=== PATIENT | female | born 1935 | race Caucasian/White ===

== ENCOUNTER 2019-12-15 22:52 | Emergency (ER) | payer MEDICARE, OTHER, SELFPAY ==
[2019-12-15 22:56] VITALS: BP 127/47; PULSE 98; RESP 15; TEMP 36.4; O2SAT 98
--- NOTE | 2019-12-15 22:58 | ED.EAR ---
HPI - Ear Problem General Chief complaint: Ear Stated complaint: Hit ear on heating pad Time Seen by Provider: 12/15/19 22:58 Source: patient Mode of arrival: ambulatory Limitations: no limitations History of Present Illness HPI Narrative: Patient is an 84-year-old female who presents for evaluation of laceration to the left ear. Patient reports that she was using a heating pad, when she went to move the heating pad, states that has quite sharp edges, and it cut into her left ear. Patient reports she is able to control the bleeding at home, but due to the size of the laceration wanted to be seen at our emergency department. Patient denies fall, head trauma or loss of consciousness. She is up-to-date on her tetanus. No numbness. Pain is mild. No neck pain, no vision changes. Related Data Allergies Allergy/AdvReac Type Severity Reaction Status Date / Time Influenza Virus Vaccines Allergy Unknown LYMPH NODE Verified 07/18/15 11:10 SWELLING Review of Systems Review of Systems: Narrative: CONSTITUTIONAL: Denies fever CARDIOVASCULAR: Denies chest pain RESPIRATORY: Denies cough or dyspnea. GASTROINTESTINAL: Denies abdominal pain SKIN: Denies rash MUSCULOSKELETAL: Denies back pain NEUROLOGIC: Denies headache PMF Past Medical History Medical History (Updated 12/15/19 @ 23:27 by Serene Sherwood MD) Breast cancer Hypertension Surgical History Surgical History (Updated 12/15/19 @ 23:25 by Serene Sherwood MD) H/O mastectomy Hx of bilateral hip replacements Social History Social History (Updated 12/15/19 @ 23:25 by Serene Sherwood MD) Smoking status: Never smoker Alcohol intake: never Substance use: never Gender identity (if verbalized by the patient): Female Exam Narrative: Exam Narrative: GENERAL: Awake, alert, conversant HEAD: Normocephalic, atraumatic. EYES: PERRLA and EOMI. ENT: Nares clear, no rhinorrhea or epistaxis. Mucous membranes moist. NECK: Supple. CHEST: No respiratory distress, breathing even and non labored HEART: Regular rate, sinus rhythm ABDOMEN:Non distended, non tender EXTREMITIES: Normal range of motion. No edema. SKIN: 2 cm through and through laceration of the pinna of the left ear, violation of the cartilage, minimal active bleeding, no foreign body NEURO:No focal deficits. Alert and oriented x3 Course Vital Signs Vital signs: Vital Signs Temperature 36.4 C L 12/15/19 22:56 Pulse Rate 98 12/15/19 22:56 Respiratory Rate 15 12/15/19 22:56 Blood Pressure 127/47 L 12/15/19 22:56 Pulse Oximetry 98 12/15/19 22:56 Temperature 36.4 C L 12/15/19 22:56 Pulse Rate 98 12/15/19 22:56 Respiratory Rate 15 12/15/19 22:56 Blood Pressure 127/47 L 12/15/19 22:56 Pulse Oximetry 98 12/15/19 22:56 Transfer Transportation: Other (POV) Medical Decision Making MDM Narrative Medical decision making narrative: Patient presented for evaluation of left ear laceration. It does violate the cartilage. Patient's tetanus is up-to-date. She was given a dose of IV antibiotics. There is no foreign body or active bleeding identified on exam. I called over to multiple hospitals in the area including [facility] who do not have ENT or plastics on-call. We do not have ENT or plastics on-call at this facility. I called over to [facility] they do not have plastics clinic available to see the patient tomorrow, but did advise she could go to the emergency department. I called over to [facility] who stated that there was a 5 to 8-hour wait in the emergency department, so then I spoke with Dr. Ayala with facial plastics who will try to work the patient into clinic with facial plastics tomorrow so that the patient can avoid the emergency department. For now, we will prescribe outpatient Keflex, and patient was given follow-up information for the facial plastics clinic. If they are unable to secure an appointment with
[2019-12-16 00:59] VITALS: BP 125/79; PULSE 79; RESP 19; TEMP 37; O2SAT 100
== END 2019-12-16 01:00 | disposition home or self-care (01) ==
PROVIDERS: Emergency Provider Emergency Medicine; PCP Family Medicine Adolescent Medicine
DX: S01.312A Laceration without foreign body of left ear, initial encounter (principal); Z85.3 Personal history of malignant neoplasm of breast; I10 Essential (primary) hypertension; W26.9XXA Contact with unspecified sharp object(s), initial encounter
CPT/HCPCS: 96365; 99284; J0690

== ENCOUNTER → 2021-08-23 11:54 | Outpatient (CLI) | payer MEDICARE, OTHER, SELFPAY ==
--- NOTE | ~2021-08-23 | DEXA_ITS ---
Bone Density Report Name: MONICA RODRIGUEZ Age: 85 Sex: Female Ethnicity: White Date of : 1935 Indication: monitoring treatment; parental hip fracture; height loss; hysterectomy; postmenopausal Referring Provider: YA DIAZ Study: Bone densitometry was performed. Exam Date: August 23, 2021 Accession number: [id number] Bone Density: Region BMD T-score Z-score Classification AP Spine (L1-L4) 1.250 1.8 4.7 Normal World Health Organization criteria for BMD impression classify patients as: Normal (T-score at or above -1.0), Osteopenia (T-score between -1.0 and -2.5), or Osteoporosis (T-score at or below -2.5). Previous Exams: Region Exam Age BMD T-score BMD Change BMD Change Date g/cm2 vs Baseline vs Previous AP Spine(L1-L4) 08/23/2021 85 1.250 1.8 0.112* 0.112* 11/13/2017 81 1.139 0.8 *Denotes significance at 95% confidence level, LSC for AP Spine = 0.022 g/cm2 Clinical Information Provided by Patient: Parent has had a hip fracture Is being treated for osteoporosis Has used the following medications: Boniva (i.e. ibandronate), Vitamin D, Calcium Has the following medical conditions: Hysterectomy Patient maximum height was 62 Menopause Age: 48 Drinks caffeinated beverages Onset of menses at age 10 Number of children 0 Impression: The patient has normal bone mass. The patient has risk factors, including: parental hip fracture. No significant bone loss was observed. Discussion: PATIENT UNDER TREATMENT WITH NO SIGNIFICANT BMD LOSS SINCE LAST EXAM. In an untreated patient, BMD typically declines with age. A lack of decline or gain is usually a sign that treatment is efficacious and fracture risk is reduced. It is important to ask patients whether they are taking their medications and to encourage continued and appropriate compliance with their osteoporosis therapies to reduce fracture risk. It is also important to review their risk factors and encourage appropriate calcium and vitamin D intakes, exercise, fall prevention and other lifestyle measures. Follow-Up: Consider a repeat BMD and Vertebral Fracture Assessment (VFA) exam in 2 years or sooner if medically necessary, to reassess this patient's status. Reported by: HUY on 08/23/2021 12:23:00 PM. Reviewed, dictated and finalized at location [facility] FOLEY
--- NOTE | ~2021-08-23 | XR_ITS ---
EXAMINATION: XR hip BI wo pelvis EXAM DATE: 08/23/2021 12:45 INDICATION: History of bilateral total hip replacements. TECHNIQUE: Each hip imaged independently (separate right and also left hip) 'frog leg' and frontal p rojections for interpretation. Comparison is made to prior examination from 07/18/2015 left hip. FINDINGS: There are bilateral hip replacements, hardware in expected position. No periprosthetic luce ncy or hardware subsidence. There are no acute fractures identified. IMPRESSION: Intact hip replacements. Reviewed, dictated and finalized at location G. [employer] OPERATOR IMPRESSION: Intact hip replacements.
== END ==
PROVIDERS: PCP Family Medicine Adolescent Medicine; Visit Provider Family Medicine Adolescent Medicine
DX: Z78.0 Asymptomatic menopausal state (principal); Z96.643 Presence of artificial hip joint, bilateral
CPT/HCPCS: 73521; 77080

== ENCOUNTER 2021-10-24 10:37 | Outpatient (CLI) | payer MEDICARE, OTHER, SELFPAY | END 2021-10-24 10:38 | disposition home or self-care (01) | LOC: ANHAUDIO 10:40 | PROVIDERS: PCP Family Medicine Adolescent Medicine; Visit Provider Family Medicine Adolescent Medicine | DX: H91.13 Presbycusis, bilateral (principal) | CPT/HCPCS: 92557; 92567 ==

== ENCOUNTER 2022-03-17 10:20 | Emergency (ER) | payer MEDICARE, SELFPAY ==
--- NOTE | 2022-03-17 10:25 | ED.LOWEXIN ---
HPI - Extremity Injury (Lower) General Chief Complaint: Extremity Injury, Lower Stated Complaint: Right Ankle/Leg Pain Time Seen by Provider: 03/17/22 10:25 Source: patient Mode of arrival: ambulatory Limitations: no limitations History of Present Illness HPI Narrative: Ms. Oconnell is a 86-year-old female patient presenting to clinic today with complaints of right ankle and leg pain since last night. She reports no known injury to her right lower leg/ankle. Does have a trace of edema to the lower extremity. Denies any history of blood clotting disorder, PVD, PAD, hyperlipidemia, diabetes, or congestive heart failure. She denies any shortness of breath or chest pain. Is taking lisinopril for history of hypertension. She denies history of being a smoker Related Data Home Medications Medication Instructions Recorded Confirmed spironolactone 25 mg tablet 25 mg PO DAILY 02/21/22 02/21/22 Allergies Allergy/AdvReac Type Severity Reaction Status Date / Time Influenza Virus Vaccines Allergy Unknown LYMPH NODE Verified 03/17/22 10:24 SWELLING indomethacin AdvReac Intermediate Abdominal Verified 03/17/22 10:24 Pain diclofenac AdvReac Mild Abdominal Verified 03/17/22 10:24 Pain Review of Systems Review of Systems: Pertinent positives per HPI. Patient denies any fever, chills, rash, headache, visual changes, dizziness, cough, runny nose, sore throat, shortness of breath, chest pain, palpitations, nausea, vomiting, diarrhea, constipation, abdominal pain, or any urinary issues. [facility] Past Medical History Medical History Breast cancer Hypertension Surgical History Surgical History H/O bilateral mastectomy (2009) H/O mastectomy Hx of bilateral hip replacements Left 2016 Right 2012 Hx of hysterectomy (2013) Social History Social History Smoking status: Never smoker Alcohol intake: never Substance use: never Gender identity (if verbalized by the patient): Female Comments At the time of my signature, I reviewed and agree with the nursing past medical, surgical, social, and family history. There is no relevant family history pertinent to the patient complaint. Exam Narrative: General: Well-developed, well nourished, in no apparent distress Head: Normocephalic, atraumatic. Cardio: Regular rate and rhythm, s1 and s2 normal, no murmur appreciated. Resp: Clear to auscultation bilaterally, no rhonchi, rales, wheezing or rubs. Musculoskeletal: No deformity, tender to palpation over the medial lower leg and to the top of the ankle and foot. Into the top of the ankle and foot is more of a paresthesia but has a small knotted area to the right medial lower leg is tender to palpation with a positive Homans' sign, grossly normal range of motion, muscle strength strong and equal, pedal pulse present, trace of edema in right lower extremity, foot appears dusky but has good capillary refill, normal gait and station Course Course Emergency Course: Portions of this record may have been created with voice recognition software. Level of Care: Express Care Visit Vital Signs Vital signs: Vital signs reviewed Transfer Transfered to: [facility] Transportation: Other (Private car) Transfer rationale: Right leg pain with mild swelling rule out DVT Accepting physician: Allison Butler Transfer comments: Transfer via private car MDM - Extremity Injury (Lower) MDM Narrative Medical decision making narrative: At the time of visit patient is resting comfortably on the exam table. Recommend transfer to ED for DVT evaluation although this may be a superficial thrombosis to the right lower medial. Risk and benefits explained to the patient and she agrees to transfer. Contacted Allison who is the provider in the emergency room
[2022-03-17 10:32] VITALS: BP 117/64; PULSE 80; RESP 18; TEMP 36; O2SAT 100
[2022-03-17 10:36] VITALS: BP 117/64; PULSE 80; RESP 18; TEMP 36; O2SAT 100
== END 2022-03-17 10:55 | disposition short-term general hospital (02) ==
PROVIDERS: Emergency Provider Nurse Practitioner Family; PCP Family Medicine Adolescent Medicine
DX: M79.661 Pain in right lower leg (principal); R60.0 Localized edema; I10 Essential (primary) hypertension; Z85.3 Personal history of malignant neoplasm of breast; Z90.13 Acquired absence of bilateral breasts and nipples; Z96.643 Presence of artificial hip joint, bilateral
CPT/HCPCS: 99212; G0463

== ENCOUNTER 2022-03-17 11:04 | Emergency (ER) | payer MEDICARE, SELFPAY ==
--- NOTE | ~2022-03-17 | US_ITS ---
EXAMINATION: US venous doppler LE RT DATE: 03/17/2022 12:36 INDICATION: Right lower limb pain and swelling. TECHNIQUE: Grayscale ultrasound images without and with compression and Doppler ultrasound images of the right lower extremity veins were obtained. COMPARISON: Ultrasound 07/26/2015 FINDINGS: The visualized portions of right common femoral vein, profunda (deep) femoral vein, femoral vein, pop liteal vein, peroneal veins, posterior tibial veins, and greater saphenous vein outflow are patent. IMPRESSION: 1. No deep venous thrombosis. Reviewed, dictated and finalized at location A.
[2022-03-17 11:08] VITALS: BP 147/90; PULSE 98; RESP 20; TEMP 36.3; O2SAT 100
[2022-03-17 12:14] LABS: Basophils Percent Auto 0.3 % (0.2-1.2); Eosinophils Absolute Auto 0.1 K/mm3 (0-0.3); Eosinophils Percent Auto 0.9 % (0-4.4); Hematocrit 37.7 % (37.0-47.0); Hemoglobin 12.2 g/dL (12.0-15.0); Immature Granulocyte Absolute 0.03 K/mm3 (0.00-0.031); Immature Granulocyte Percent A 0.3 % (0-0.5); Lymphocytes Absolute Auto 1.44 K/mm3 (0.9-3.2); Lymphocytes Percent Auto 16.5 % (18.3-44.2); Mean Corpuscular HGB Conc 32.4 g/dl (32-36); Mean Corpuscular Hemoglobin 34.7 pg (26-34); Mean Corpuscular Volume 107.1 fl (80-100); Mean Platelet Volume 9.4 fl (7.4-10.4); Monocytes Percent Auto 10.9 % (2.6-8.5); Neutrophils Absolute Auto 6.2 K/mm3 (1.3-6.7); Neutrophils Percent Auto 71.1 % (45.5-73.1); Platelet Count Result 281 k/mm3 (150-375); Red Blood Count 3.52 M/mm3 (4.2-5.4); Red Cell Distribution Width 12.6 % (11.5-14.5); White Blood Count 8.7 K/mm3 (4.5-10.0)
[2022-03-17 12:24] LABS: Alanine Aminotransferase 23 U/L (6-35); Albumin Level 4.3 g/dL (3.5-5.1); Alkaline Phosphatase 61 U/L (38-126); Anion Gap 11 mmol/L (8-16); Aspartate Amino Transferase 34 U/L (14-36); Bilirubin,Total 0.6 mg/dL (0.2-1.3); Blood Urea Nitrogen 17 mg/dL (7-17); Calcium 10.8 mg/dL (8.4-10.2); Carbon Dioxide 28 mmol/L (22-30); Chloride 96 mmol/L (98-107); Estimated Glomerular Filt Rate 39; Glucose 95 mg/dL (65-110); Potassium 4.6 mmol/L (3.4-5.0); Prothrombin Time 12.8 Seconds (11.1-14.7); Sodium 135 mmol/L (137-145)
[2022-03-17 12:25] LABS: Partial Thromboplastin Time 30.6 SECONDS (22.3-36.8)
--- NOTE | 2022-03-17 12:39 | ED.EXTPRO ---
HPI - Extremity Problem General Chief complaint: Extremity Problem,Nontraumatic Stated complaint: right leg swelling Time Seen by Provider: 03/17/22 11:23 Source: patient and old records reviewed Mode of arrival: ambulatory Limitations: no limitations History of Present Illness HPI Narrative: Patient is an 86-year-old female who presents to the ED from urgent care with report of redness, pain, swelling to right lower leg. Patient reports she first noticed an area of pain to her lower medial calf yesterday. She has since developed some redness and swelling to her right foot, ankle, lower calf. She went to the urgent care and was referred here for further evaluation and to rule out DVT. Patient denies history of blood clots. No blood thinners. No recent long distance travel. No chest pain or shortness of breath. No known injury to her foot/lower leg. No wounds. No fever. Related Data Home Medications Medication Instructions Recorded Confirmed spironolactone 25 mg tablet 25 mg PO DAILY 02/21/22 03/17/22 Allergies Allergy/AdvReac Type Severity Reaction Status Date / Time Influenza Virus Vaccines Allergy Unknown LYMPH NODE Verified 03/17/22 11:20 SWELLING indomethacin AdvReac Intermediate Abdominal Verified 03/17/22 10:24 Pain diclofenac AdvReac Mild Abdominal Verified 03/17/22 10:24 Pain Review of Systems Review of Systems: CONSTITUTIONAL: Denies fever, chills, or sweats. CARDIOVASCULAR: Denies chest pain. RESPIRATORY: Denies dyspnea. GASTROINTESTINAL: Denies abdominal pain, nausea, vomiting. SKIN: Reports redness and swelling to R lower leg. MUSCULOSKELETAL: Reports pain to R lower leg. NEUROLOGIC: Denies tingling, numbness, or weakness. All systems reviewed & are unremarkable except as noted in HPI and below PMFSH Past Medical History Medical History Breast cancer Hypertension Surgical History Surgical History H/O bilateral mastectomy (2009) H/O mastectomy Hx of bilateral hip replacements Left 2016 Right 2012 Hx of hysterectomy (2012) Social History Social History Smoking status: Never smoker Alcohol intake: never Substance use: never Gender identity (if verbalized by the patient): Female Exam Narrative: GENERAL: Well appearing, well-nourished, non-toxic, in no acute distress. HEAD: Normocephalic, atraumatic. NECK: Supple. No adenopathy, no masses. RESPIRATORY: Airway patent, respirations nonlabored. Clear to auscultation bilaterally, no rales, rhonchi, wheezing. CARDIOVASCULAR: Regular rate and rhythm without murmurs, rubs, or gallops. Pedal pulses 2+ and equal bilaterally. MUSCULOSKELETAL: Moves all extremities. Strength/ROM intact without gross deformities. No limited range of motion of right ankle/knee. Mild tenderness to palpation of lower medial right calf overlying small superficial lump. No fluctuance appreciated of lump. No other significant calf tenderness. Mild warmth and erythema from mid right calf down to anterior/medial/dorsal foot. Mild swelling of R lower leg compared to left. SKIN: Warm, dry, normal color. No rashes. NEURO: A&O X3. Speech clear. Cranial nerves II-XII grossly intact. Steady gait. No ataxic movements. PSYCHIATRIC: Appropriate mood and affect. Normal interaction. Course Vital Signs Vital signs: Vital Signs Temperature 97.3 F L 03/17/22 11:08 Pulse Rate 98 03/17/22 11:08 Respiratory Rate 20 03/17/22 11:08 Blood Pressure 147/90 H 03/17/22 11:08 Pulse Oximetry 100 03/17/22 11:08 Oxygen Delivery Room Air 03/17/22 11:08 Temperature 97.3 F L 03/17/22 11:08 Pulse Rate 78 03/17/22 14:07 Respiratory Rate 16 03/17/22 14:07 Blood Pressure 154/82 H 03/17/22 14:07 Pulse Oximetry 100 03/17/22 14:07 Oxygen Delivery Room Air 03/17/22 1
[2022-03-17 14:07] VITALS: BP 154/82; PULSE 78; RESP 16; O2SAT 100
== END 2022-03-17 14:08 | disposition home or self-care (01) ==
PROVIDERS: Physician Assistant; Emergency Provider General Practice; PCP Family Medicine Adolescent Medicine
DX: L03.115 Cellulitis of right lower limb (principal); M79.89 Other specified soft tissue disorders; I10 Essential (primary) hypertension; Z85.3 Personal history of malignant neoplasm of breast
CPT/HCPCS: 36415; 80053; 85025; 85610; 85730; 93971; 99284

== ENCOUNTER → 2022-11-28 11:02 | Outpatient (CLI) | payer MEDICARE, OTHER, SELFPAY ==
--- NOTE | ~2022-11-28 | XR_ITS ---
EXAMINATION: XR lumbar spine 2-3V DATE: 11/28/2022 12:46 INDICATION: Pain of the sacrum. TECHNIQUE: 3 views of lumbar spine were obtained. COMPARISON: None. FINDINGS: There is 10 degrees levoscoliosis of lumbar spine. There is 3 mm retrolisthesis of L1 on L2 , L2 on L3, and L3 on L4. There is severely decreased disc height at T11-T12 and T12-L1, moderately d ecreased disc height from L1-L2 through L4-L5, and severely decreased disc height at L4-L5 and L5-S1. There is multilevel severe facet joint osteoarthritis. There are bilateral hip arthroplasties. There is mild osteoarthritis of the sacroiliac joints. IMPRESSION: 1. Severe lumbar spondylosis. 2. Lumbar levoscoliosis. Reviewed, dictated and finalized at location A.
== END ==
PROVIDERS: PCP Family Medicine Adolescent Medicine; Visit Provider Family Medicine Adolescent Medicine
DX: M53.3 Sacrococcygeal disorders, not elsewhere classified (principal); M47.896 Other spondylosis, lumbar region
CPT/HCPCS: 72100

== ENCOUNTER 2022-11-30 14:01 | Inpatient (IN) | payer MEDICARE, SELFPAY ==
[2022-11-30] VITALS (36 sets, daily range): BP systolic 110–159; BP diastolic 56–87; PULSE 69–133; RESP 15–24; TEMP 36.4–36.7; O2SAT 89–100; BMI 23.1
--- NOTE | ~2022-11-30 | CT_ITS ---
EXAMINATION: CT brain wo con DATE: 11/30/2022 18:34 INDICATION: Confusion TECHNIQUE: Computed tomography (CT) of the head was performed without intravenous contrast. Sagittal and coronal reconstructions were performed. The mA was adjusted according to patient size. Iterative reconstruction technique was employed. The dose-length product was 529.67 mGy-cm. COMPARISON: None FINDINGS: No acute intracranial hemorrhage, acute infarction or abnormal extra axial fluid collection. There is moderate scattered white matter hypoattenuation consistent with chronic small vessel ischemic diseas e. Symmetric prominence of the sulci and subarachnoid spaces overlying the convexities consistent wit h moderate age-appropriate diffuse cerebral volume loss. Ventricles are normal and symmetric. No mass /mass effect. Changes of bilateral intraocular lens replacement. The orbits, paranasal sinuses and ma stoid air cells are normal. IMPRESSION: 1. No acute intracranial process. 2. Age-related changes including moderate diffuse volume loss and moderate scattered white matter hyp oattenuation consistent with chronic small vessel ischemic disease. Reviewed, dictated and finalized at location A. IMPRESSION: 1. No acute intracranial process. 2. Age-related changes including moderate diffuse volume loss and moderate scat tered white matter hypoattenuation consistent with chronic small vessel ischemi c disease.
--- NOTE | ~2022-11-30 | MR_ITS ---
MRI of the brain Clinical History: Confusion Technique: Axial and sagittal T1-weighted images were acquired. These were followed by axial T2-weigh katherine, diffusion weighted, gradient, and FLAIR images. Following intravenous administration of 11 cc Mu ltiHance gadolinium, T1-weighted fat-sat imaging was performed in the axial and coronal planes. Findings: There is no acute infarct, internal hemorrhage, or mass lesion. There are moderate chronic white matter changes throughout the periventricular white matter bilaterally. Ventricles and subarachnoid spaces are unremarkable. Orbits are unremarkable. Paranasal sinuses and m astoid areas are clear. Major intracranial flow voids appear intact. Sagittal midline structures are intact. No abnormal postcontrast enhancement identified. IMPRESSION: No acute abnormality. Moderate chronic microvascular ischemic changes. Reviewed, dictated and finalized at location .
--- NOTE | ~2022-11-30 | XR_ITS ---
EXAMINATION: XR chest 2V DATE: 11/30/2022 15:14 INDICATION: Dizziness. Weakness. TECHNIQUE: Frontal and lateral views of the chest were obtained. COMPARISON: Chest 2 views 07/07/15, chest CT 06/27/2012 FINDINGS: There is no pneumonia, pleural effusion, or pneumothorax. Cardiomegaly is noted. There is a chronic 2 cm left upper paraspinal mass. There are prominent pericardial fat pads. IMPRESSION: 1. Cardiomegaly. 2. 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 Reviewed, dictated and finalized at location A. IMPRESSION: 1. Cardiomegaly. 2. 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
--- NOTE | ~2022-11-30 | US_ITS ---
EXAMINATION: US carotid duplex BI DATE: 11/30/2022 22:40 INDICATION: Slurred speech TECHNIQUE: Grayscale, color Doppler, and pulsed Doppler images of the cervical carotid arteries were obtained. The degree of vessel stenosis is placed in one of the following categories: normal, <50%, 5 0-69%, >=70% but less than near-occlusion, near-occlusion, or total occlusion. Note that percent sten osis relative to normal distal artery lumen diameter is indirectly measured from velocity measurement s as described by Prasad, et al. Radiology 2003; 229:340-346. COMPARISON: None. FINDINGS: RIGHT: The right common carotid artery (CCA) peak systolic velocity (PSV) is 56 cm/s. The right internal car otid artery (ICA) PSV is 81 cm/s. The right ICA end-diastolic velocity (EDV) is 9 cm/s. The right ICA /CCA PSV ratio is 1.4. Grayscale and color Doppler images yield an estimate of <50% diameter reductio n from plaque in the ICA. The external carotid artery (ECA) PSV is 95 cm/s. There is antegrade flow i n the right vertebral artery. LEFT: The left CCA PSV is 69 cm/s. The left ICA PSV is 63 cm/s. The left ICA EDV is 13 cm/s. The left ICA/C CA PSV ratio is 0.9. Grayscale and color Doppler images yield an estimate of <50% diameter reduction from plaque in the ICA. The ECA PSV is 91 cm/s. There is antegrade flow in the left vertebral artery. IMPRESSION: 1. <50% stenosis in the right internal carotid artery. 2. <50% stenosis in the left internal carotid artery. Reviewed, dictated and finalized at location A.
--- NOTE | ~2022-11-30 | US_ITS ---
EXAMINATION: US venous doppler [facility] DATE: 11/30/2022 22:40 INDICATION: Bilateral lower limb swelling. TECHNIQUE: Grayscale ultrasound images without and with compression and Doppler ultrasound images of the bilateral lower extremity veins were obtained. COMPARISON: None. FINDINGS: The visualized portions of right common femoral vein, profunda (deep) femoral vein, femoral vein, pop liteal vein, posterior tibial veins, peroneal veins, gastrocnemius vein and greater saphenous vein ou tflow are patent. The visualized portions of left common femoral vein, profunda femoral vein, femoral vein, popliteal v ein, posterior tibial veins, peroneal veins, gastrocnemius vein and greater saphenous vein outflow ar e patent. IMPRESSION: 1. No deep venous thrombosis in either lower limb. Reviewed, dictated and finalized at location A.
--- NOTE | 2022-11-30 14:05 | ECG_ITS ---
Measurements Intervals [place] Rate: 62 P: 89 IA: 138 QRS: -67 QRSD: 122 T: 36 QT: 396 QTc: 402 Interpretive Statements SINUS RHYTHM WITH MARKED SINUS ARRHYTHMIA MARKED LEFT AXIS DEVIATION [QRS AXIS < -30] LEFT BUNDLE BRANCH BLOCK [120+ ms QRS DURATION, 80+ ms Q/S IN V1/V2, 85+ ms R IN I/aVL/V5/V6] NO PREVIOUS ECG AVAILABLE FOR COMPARISON Electronically Signed On 11-30-2022 15:29:51 CDT by Clay Hyatt M.D.
[2022-11-30 14:26] LABS: Basophils Percent Auto 0.2 % (0.2-1.2); Hematocrit 38.1 % (37.0-47.0); Hemoglobin 12.3 g/dL (12.0-15.0); Immature Granulocyte Absolute 0.09 K/mm3 (0.00-0.031); Immature Granulocyte Percent A 0.8 % (0-0.5); Lymphocytes Absolute Auto 0.84 K/mm3 (0.9-3.2); Lymphocytes Percent Auto 7.8 % (18.3-44.2); Mean Corpuscular HGB Conc 32.3 g/dl (32-36); Mean Corpuscular Hemoglobin 34.7 pg (26-34); Mean Corpuscular Volume 107.6 fl (80-100); Mean Platelet Volume 10.1 fl (7.4-10.4); Monocytes Absolute Auto 0.4 K/mm3 (0.1-0.6); Monocytes Percent Auto 4.1 % (2.6-8.5); Neutrophils Absolute Auto 9.4 K/mm3 (1.3-6.7); Neutrophils Percent Auto 87.1 % (45.5-73.1); Platelet Count Result 290 k/mm3 (150-375); Red Blood Count 3.54 M/mm3 (4.2-5.4); White Blood Count 10.7 K/mm3 (4.5-10.0)
[2022-11-30 14:37] LABS: Alanine Aminotransferase 33 U/L (6-35); Albumin Level 4.3 g/dL (3.5-5.1); Alkaline Phosphatase 53 U/L (38-126); Anion Gap 5 mmol/L (8-16); Aspartate Amino Transferase 34 U/L (14-36); Bilirubin,Total 0.7 mg/dL (0.2-1.3); Blood Urea Nitrogen 53 mg/dL (7-17); Calcium 11.9 mg/dL (8.4-10.2); Carbon Dioxide 32 mmol/L (22-30); Chloride 99 mmol/L (98-107); Estimated CRCL calculation 14 ml/min; Estimated Glomerular Filt Rate 25; Glucose 144 mg/dL (65-110); Sodium 136 mmol/L (137-145)
[2022-11-30 15:32] LABS: Appearance Urine Clear (Clear); Bilirubin Urine Negative (Negative); Blood Urine Negative (Negative); Color Urine Yellow (Yellow); Glucose Urine UA Negative (Negative); Ketones Urine 1+ mg/dL (Negative); Leukocyte Esterase Ur Negative LEU/UL (Negative); Nitrate Urine Negative (Negative); Protein Urine Negative (Negative); Specific Grav Ur 1.023 (1.001-1.035); Urobilinogen Urine 0.2 mg/dL (<2.0)
[2022-11-30 15:33] LABS: Add Urine Microscopic? NO
--- NOTE | 2022-11-30 17:59 | ED.DIZZY ---
HPI - Dizziness General Chief Complaint: Dizziness Stated Complaint: dizzy, confusion Time Seen by Provider: 11/30/22 17:59 Source: patient and family Mode of arrival: ambulatory Limitations: no limitations History of Present Illness HPI Narrative: 86 years old white female came from home with her niece because of confusion, slurred speech, blurry vision, abnormal handwriting, losing weight, fluctuation of blood pressure. For the last 7 days. Patient denies any fever, chills, nausea, vomiting, diarrhea, constipation, headache, chest pain or shortness of breath or focal neurodeficit. Currently patient is awake, alert and oriented x4 denying any symptoms. Patient been taking Advil for lower back pain, history of lumbar bulging disc. Related Data Home Medications Medication Instructions Recorded Confirmed spironolactone 25 mg tablet 25 mg PO DAILY 02/21/22 03/17/22 Allergies Allergy/AdvReac Type Severity Reaction Status Date / Time Influenza Virus Vaccines Allergy Unknown LYMPH NODE Verified 11/28/22 09:50 SWELLING indomethacin AdvReac Intermediate Abdominal Verified 11/28/22 09:50 Pain diclofenac AdvReac Mild Abdominal Verified 11/28/22 09:50 Pain Review of Systems Review of Systems: All systems reviewed & are unremarkable except as noted in HPI and below PMFSH Past Medical History Medical History Breast cancer Hypertension Surgical History Surgical History H/O bilateral mastectomy (2009) H/O mastectomy Hx of bilateral hip replacements Left 2016 Right 2012 Hx of hysterectomy (2012) Social History Social History Smoking status: Never smoker Alcohol intake: never Substance use: never Lack of Transportation: No Lack of Food: Never True Current Housing: I Have Housing Concerned About Future Housing: No Difficulty Paying Gas/Electric Bills: No Difficulty Paying for Meds: No Currently Unemployed: No Education: Master's Degree or Higher Difficulty w/ Childcare or Family Care: No Gender identity (if verbalized by the patient): Female Exam Narrative: General appearance: Well-developed, well-nourished Skin: Normal color Head: Normocephalic, nontraumatic Eyes: Clear conjunctiva ENT: Oropharynx normal, ears normal, nose normal Neck: Supple, nontender Chest and respiratory: Airway patent, no respiratory distress, no accessory muscle use Heart: Regular rate/rhythm Abdomen: Soft, nontender, no organomegaly, quiet bowel sounds Vascular: Normal peripheral pulses, normal capillary refill. Musculoskeletal: Normal range of motion, nontender back Neurologic: Alert and oriented ?3, [employer] is normal as tested, no gross motor deficit Course Reevaluation(s) Reevaluation #1: No new changes compared to on arrival to the ED Date: 11/30/22 Time: 18:28 Vital Signs Vital signs: Vital Signs Temperature 36.4 C 11/30/22 14:04 Pulse Rate 76 11/30/22 14:04 Respiratory Rate 18 11/30/22 14:04 Blood Pressure 127/63 11/30/22 14:04 Pulse Oximetry 97 11/30/22 14:04 Oxygen Delivery Room Air 11/30/22 14:04 Temperature 36.4 C 11/30/22 14:04 Pulse Rate 76 11/30/22 14:04 Respiratory Rate 18 11/30/22 14:04 Blood Pressure 127/63 11/30/22 14:04 Pulse Oximetry 97 11/30/22 14:04 Oxygen Delivery Room Air 11/30/22 14:04 MDM - Dizziness MDM Narrative Medical decision making narrative: Patient brought to the hospital by her niece, private car complaining of multiple symptoms including confusion, slurred sp
[2022-11-30] MEDS: SODIUM CHLORIDE 0.9% IV 1,000 ML 999 ML IV CONT (18:11)
[2022-11-30] MEDS: SODIUM CHLORIDE 0.9% IV 1,000 ML 100 ML IV CONT (20:27)
[2022-11-30] MEDS: HYDROcodone/acetaminophen (*CRX) 5-325 MG TABLET 1 TAB PO (20:30)
--- NOTE | 2022-11-30 20:48 | ECG_ITS ---
Measurements Intervals [place] Rate: 71 P: 92 [place]: 136 QRS: -54 QRSD: 126 T: 38 QT: 414 QTc: 452 Interpretive Statements SINUS RHYTHM LEFT AXIS DEVIATION [QRS AXIS < -30] LEFT BUNDLE BRANCH BLOCK [120+ ms QRS DURATION, 80+ ms Q/S IN V1/V2, 85+ ms R IN I/aVL/V5/V6] COMPARED TO ECG 11/30/2022 14:20:32 NO SIGNIFICANT CHANGES Electronically Signed On 12-01-2022 9:39:39 CDT by Clay Hyatt M.D.
--- NOTE | 2022-11-30 21:21 | PM.IMHP ---
H&P: HPI History of Present Illness Date/Time: 11/30/22 21:21 Chief Complaint: Dizzines Narrative: this is a 86-year-old female patient who lives home alone. The patient is very hard of hearing and was confused today. She is also complaining of some back pain. Her niece is at the bedside. The niece felt that the patient was confused because they were driving 2 in area where the patient is usually familiar with this area. The knees felt that the patient's hand writing is changing and she is losing weight. There is some fluctuations of her blood pressures as well for the last 7 days. The patient had no fever chills no nausea vomiting no diarrhea. The patient has been taking Advil for lower back pain. She has a history of lumbar bulging disc. Her sodium levels found to be 136. Creatinine is up to 1.9 from 1.3 last year. Her BUN is 53. The patient denies any nausea vomiting but states that she may not be eating and drinking as as much as she usually Does. The patient is complaining of having some swelling to her lower extremities and venous Dopplers of from the deep vein thrombosis was noted in either leg. Carotid Doppler<50% stenosis in the right internal carotid artery. 2. <50% stenosis in the left internal carotid artery. head CT was read as. No acute intracranial process. 2. Age-related changes including moderate diffuse volume loss and moderate scattered white matter hypoattenuation consistent with chronic small vessel ischemic disease. chest x-ray was read as. Cardiomegaly. 2. 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 the patient was given IV fluids and [place]. The patient is being admitted to inpatient status the date of service of 11/30/2022. Review of Systems Review of Systems: All systems reviewed & are unremarkable except as noted in HPI and below Constitutional: Constitutional: Reports as per HPI and Reports no additional constitutional complaints Eyes: Eyes: Reports as per HPI and Reports no additional eye complaints ENT: Reports system reviewed and no additional complaints, except as documented and Reports Normal hearing present Cardiovascular: Cardiovascular: Reports no additional cardiovascular complaints Respiratory: Respiratory: Reports no additional respiratory complaints and Reports no additional respiratory complaints Gastrointestinal: Gastrointestinal: Reports as per HPI and Reports no additional gastrointestinal complaints Musculoskeletal: Musculoskeletal: Reports no additional musculoskeletal complaints Integumentary/Breasts: Skin/Breast: Reports system reviewed and no additional complaints, except as docu and Reports as per HPI Neurologic: Reports system reviewed and no additional complaints, except as documented, Reports as per HPI and Reports Normal hearing present Psychiatric: Psychiatric: Reports no additional psychiatric complaints and Reports as per HPI Endocrine: Endocrine: Reports no additional endocrine complaints Hematologic/Lymphatic: Hematologic/Lymphatic: Reports no additional hematologic/lymphatic complaints Allergic/Immunologic: Allergic/Immunologic: Reports no additional allergic/immunologic complaints [facility] Past Medical History Medical History (Updated 12/01/22 @ 04:35 by Moon Reynolds NP) Breast cancer Chronic back pain Hypertension Torn rotator cuff Surgical History Surgical History (Updated 12/01/22 @ 04:29 by Moon Reynolds NP) H/O bilateral mastectomy (2009) H/O cataract extraction H/O colonoscopy H/O mastectomy right side History of tonsillectomy Hx of bilateral hip replacements Left 2016 Right 2012 Hx of hysterectomy (2013) Family History Family History Sibling Asthma Diabetes mellitus Hypertension Grandparent Cerebrovascular accident Mother Colon cancer Congestive heart failure Hypertension Social History Social History (Update
--- NOTE | 2022-11-30 22:43 | ADMGEN ---
This patient, Aury Oconnell, was admitted to Medical Room 257-. Patient/family oriented to hospital policies and general routines including ID bracelet, bed and alarms, visiting hours, pain management, procedures, bathroom and other care routines, personal items, smoking policy, room service/diet, and visiting hours. Information on how to activate the Rapid Response Team has been discussed. Patient/Family are encouraged to report perceived risks to care and to ask questions if they do not understand what they are told or what they should do.
[2022-12-01] VITALS (10 sets, daily range): BP systolic 118–171; BP diastolic 54–70; PULSE 51–80; RESP 16–18; TEMP 36.4–37.3; O2SAT 96–99
--- NOTE | 2022-12-01 | ECHO_ITS ---
Patient Info Name: Aury Oconnell Age: 86 years : 1935 Gender: Female Ht: 60 in Wt: 118 lbs BSA: 1.51 m2 HR: 67 bpm BP: 118 / 68 mmHg Heart Rhythm: Sinus Rhythm Technical Quality: Fair Exam Date: 12/01/2022 9:32 AM Exam Location: [facility] Pulmonary Exam Room: 257 Patient Status: Inpatient Admit Date: 11/30/2022 Staff Ordering Physician: Moon Reynolds NP Bridge Painter Helper: Li Blakely RDCS Attending Provider: Geoff Trent MD Exam Type: CA echo dop bubble study w con Study Info Indications - slurred speech Complete two-dimentional, color flow and Doppler transthoracic echocardiogram is performed with agitated saline and with contrast to opacify the left ventricle and to improve the delineation of the left ventricle endocardial borders. Contrast/Agitated Saline Contrast/Ag. Saline: Definity Amount: 2.00 ml Administered By: Li Blakely [facility] Existing IV Access: Yes IV Access Condition: patent with no signs of infiltration Summary 1. Left ventricular chamber dimension is normal. 2. Left ventricular systolic function is normal, estimated at 60-65%. 3. There is mildly increased left ventricular wall thickness. 4. Left ventricular septal wall motion is abnormal with septal motion related to bundle branch block. 5. The left ventricular diastolic function is grade I diastolic dysfunction. 6. Right ventricular systolic function is normal. 7. Left atrial chamber dimension is mildly enlarged. 8. Intact interatrial septum visualized by agitated saline imaging. Negative bubble study. 9. There is mild mitral valve regurgitation. 10. There is mild tricuspid valve regurgitation. 11. There is small-moderate anterior pericardial effusion. No echocardiographic evidence of tamponade. Left Ventricle Left ventricular chamber dimension is normal. Left ventricular systolic function is normal, estimated at 60-65%. There is mildly increased left ventricular wall thickness. Left ventricular septal wall motion is abnormal with septal motion related to bundle branch block. The left ventricular diastolic function is grade I diastolic dysfunction. Right Ventricle Right ventricular chamber dimension is normal. Right ventricular systolic function is normal. Left Atria Left atrial chamber dimension is mildly enlarged. Right Atria Right atrial chamber dimension is normal. Atrial Septum Intact interatrial septum visualized by agitated saline imaging. Negative bubble study. Aortic Valve The aortic valve is probable trileaflet. There is no aortic valve stenosis. There is no aortic valve regurgitation. There is mild aortic valve calcification. Pulmonic Valve The pulmonic valve is not well visualized. Mitral Valve The mitral valve has thickened leaflets. There is mild mitral valve regurgitation. Tricuspid Valve There is mild tricuspid valve regurgitation. Pericardium/Pleural There is small-moderate anterior pericardial effusion. No echocardiographic evidence of tamponade. Inferior Vena Cava Dilated inferior vena cava with >50% collapse upon inspiration consistent with elevated right atrial pressure, 8 mmHg. Aorta The aortic root size at the sinus of Valsalva is normal. Left Ventricular Outflow Tract Name Value Normal LVOT 2D LVOT Diameter
[2022-12-01 05:49] LABS: Basophils Percent Auto 0.2 % (0.2-1.2); Hemoglobin 10.4 g/dL (12.0-15.0); Immature Granulocyte Absolute 0.07 K/mm3 (0.00-0.031); Immature Granulocyte Percent A 0.8 % (0-0.5); Lymphocytes Absolute Auto 1.36 K/mm3 (0.9-3.2); Lymphocytes Percent Auto 15.5 % (18.3-44.2); Mean Corpuscular HGB Conc 31.5 g/dl (32-36); Mean Corpuscular Hemoglobin 34.1 pg (26-34); Mean Corpuscular Volume 108.2 fl (80-100); Mean Platelet Volume 10.3 fl (7.4-10.4); Monocytes Percent Auto 11.2 % (2.6-8.5); Neutrophils Absolute Auto 6.3 K/mm3 (1.3-6.7); Neutrophils Percent Auto 72.3 % (45.5-73.1); Platelet Count Result 221 k/mm3 (150-375); Red Blood Count 3.05 M/mm3 (4.2-5.4); Red Cell Distribution Width 12.2 % (11.5-14.5); White Blood Count 8.8 K/mm3 (4.5-10.0)
[2022-12-01 05:57] LABS: Anion Gap 2 mmol/L (8-16); Blood Urea Nitrogen 52 mg/dL (7-17); Calcium 9.3 mg/dL (8.4-10.2); Carbon Dioxide 28 mmol/L (22-30); Chloride 105 mmol/L (98-107); Estimated CRCL calculation 18 ml/min; Estimated Glomerular Filt Rate 31; Glucose 82 mg/dL (65-110); Potassium 4.1 mmol/L (3.4-5.0); Sodium 135 mmol/L (137-145)
[2022-12-01 06:11] LABS: Magnesium 1.9 mg/dL (1.6-2.3)
[2022-12-01] MEDS: ACETAMINOPHEN 325 MG TABLET 650 MG PO ×2 (07:43→20:05)
[2022-12-01] MEDS: predniSONE 10 MG TABLET 40 MG PO (07:45)
[2022-12-01] MEDS: LIDOCAINE 5% PATCH 1 PATCH TRANSDERM (07:46)
[2022-12-01 09:30] LABS: Iron 118 ug/dL (37-170)
[2022-12-01 09:40] LABS: Percent Iron Saturation 44 % (20-50)
[2022-12-01] MEDS: PERFLUTREN LIPID MICROSPHERES 1.5 ML VIAL DILUTED TO 10 ML TOTAL VOLUME IV PUSH (10:00)
--- NOTE | 2022-12-01 10:42 | PCPTNOTE ---
received PT orders for pt; activity order is for bedrest ; called and left voice message for WILIAN Siu, to change activity order if PT is to eval pt.
[2022-12-01 11:04] LABS: Folic Acid > 20.0 ng/mL (2.76->20)
--- NOTE | 2022-12-01 14:47 | PM.IMPN ---
Progress Note: A&P Assessment and Plan (1) Confusion: Code(s): R41.0 - Disorientation, unspecified Status: Acute Assessment and Plan: Patient presented with her niece who is visiting from [place]. Patient reportedly has been more confused which has been notable over phone. Additionally since her niece came in to town patient had difficulty with driving, she was noted to get lost to her favorite restaurant, drove through a stop sign and then had difficulty parking the car, this is unusual for the patient. Additionally patient was noted to have slurred speech, complaints blurry patient word finding, and unsteady gait. CT head was negative for acute findings Carotid ultrasound shows less than 50% stenosis bilaterally Echocardiogram is without PFO/ASD Brain MRI pending PT/0T consulted for evaluation B12, folate, TSH all within normal limits Patient had worsening renal function which appears to be FLORI on CKD. And may be secondary to dehydration and/or Aleve use Appears improved (2) Acute renal failure: Code(s): N17.9 - Acute kidney failure, unspecified Status: Acute Assessment and Plan: Patient stated that she has been taking a lot of NSAIDs. Continue to gently hydrate recheck labs in the a.m. (3) Chronic back pain: Code(s): M54.9 - Dorsalgia, unspecified; G89.29 - Other chronic pain Status: Acute Assessment and Plan: Patient has been taking a lot of ibuprofen due to acute worsening of chronic back pain. Hold NSAIDs given FLORI on CKD P.r.n. acetaminophen or [place] 5/325 q.4 hours Lidoderm 5% patch daily continue oral prednisone. PT OT evaluation greatly be appreciated. (4) Essential (primary) hypertension: Code(s): I10 - Essential (primary) hypertension Status: Chronic Assessment and Plan: Chronic, stable. Patient reportedly had low blood pressure while taking lisinopril which was stopped Blood pressures reviewed and 128/61 to 122/70. HR 75. Hypertension may have been secondary to pain. Continue to monitor Time Spent With Patient Time with patient: 25 - 35 minutes Subjective Date/time seen: 12/01/22 14:47 Interval history: She feels more herself today. Family is at bedside and reports the patient is more alert and speech is improved. No BARRON, vision changes, slurred speech, word finding, paresthesia, or unilateral extremity weakness. Review of Systems Review of Systems: All systems reviewed & are unremarkable except as noted in HPI and below Exam Narrative: General: No acute distress. Older adult female sitting up in bed. Mental Status/Psych: Awake, alert and oriented x4 with clear and appropriate speech. Pleasant and cooperative. Skin: Skin fair, warm, dry and intact without rashes or lesions. No open wounds. Good turgor. HEENT: Normocephalic. Sclera is non-icteric. Pupils equal and round. EOM intact without nystagmus. Oral mucosa pink and moist. Neck: No JVD. no carotid bruit. Heart: S1 and S2 regular rate and rhythm. No murmurs, gallops, or rubs auscultated. Chest: Respirations even and unlabored. Lung sounds are clear to auscultation without wheezes, rhonchi, or rales. Abdomen: Soft, obese and non-tender to palpation. Bowel sounds present in all 4 quadrants. No guarding. Extremities: No edema, erythema or calf tenderness.Grossly normal ROM. Neurological: No focal deficits. Cranial nerves 2-12 intact. No pronator drift. Intact heel to jackson. Sensation intact all extremities. No tremors or fasciculations. Objective Data Vital Signs Vital Signs: Vital Signs - 24 hr 11/30/22 15:16 11/30/22 15:18 11/30/22 15:30 Temperature Pulse Rate 78 Respiratory Rate 19 24 H Blood Pressure 138/58 L Pulse Oximetry Oxygen Delivery 11/30/22 15:31 11/30/22 15:45 11/30/22 15:46 Temperature Pulse Rate 78 90 92 Respiratory Rate Blood Pressure 125/63 110/57 L Pulse Oximetry 10
[2022-12-01] MEDS: SODIUM CHLORIDE 0.9% IV 1,000 ML 100 ML IV CONT ×2 (18:33→20:05)
[2022-12-02] VITALS: PULSE 71
[2022-12-02 04:00] VITALS: PULSE 63
[2022-12-02 05:07] VITALS: BP 124/56; PULSE 69; RESP 16; TEMP 36.9; O2SAT 100
[2022-12-02 05:52] LABS: Hematocrit 32.9 % (37.0-47.0); Hemoglobin 10.5 g/dL (12.0-15.0); Mean Corpuscular HGB Conc 31.9 g/dl (32-36); Mean Corpuscular Hemoglobin 35.4 pg (26-34); Mean Corpuscular Volume 110.8 fl (80-100); Mean Platelet Volume 10.5 fl (7.4-10.4); Platelet Count Result 212 k/mm3 (150-375); Red Blood Count 2.97 M/mm3 (4.2-5.4); Red Cell Distribution Width 12.1 % (11.5-14.5); White Blood Count 8.5 K/mm3 (4.5-10.0)
[2022-12-02 06:05] LABS: Anion Gap 2 mmol/L (8-16); Blood Urea Nitrogen 41 mg/dL (7-17); Calcium 8.2 mg/dL (8.4-10.2); Carbon Dioxide 26 mmol/L (22-30); Chloride 109 mmol/L (98-107); Estimated CRCL calculation 22 ml/min; Estimated Glomerular Filt Rate 39; Glucose 82 mg/dL (65-110); Phosphorus 1.6 mg/dL (2.5-4.5); Potassium 3.9 mmol/L (3.4-5.0); Sodium 137 mmol/L (137-145)
[2022-12-02] MEDS: SODIUM CHLORIDE 0.9% IV 1,000 ML 100 ML IV CONT (06:56)
--- NOTE | 2022-12-02 07:32 | PM.DS ---
DS: Admitting Diagnosis Discharge Date 12/02/2022 Admitting Diagnosis Disorientation, unspecified Dorsalgia, unspecified Other chronic pain Acute kidney failure, unspecified Essential (primary) hypertension DS: Discharge Diagnosis Discharge Diagnosis (1) Confusion: Code(s): R41.0 - Disorientation, unspecified Status: Acute Assessment and Plan: Patient presented with her niece who is visiting from [place]. Patient reportedly has been more confused which has been notable over phone. Additionally since her niece came in to town patient had difficulty with driving, she was noted to get lost to her favorite restaurant, drove through a stop sign and then had difficulty parking the car, this is unusual for the patient. Additionally patient was noted to have slurred speech, blurry vision, word finding, and unsteady gait. CT head was negative for acute findings Carotid ultrasound shows less than 50% stenosis bilaterally Echocardiogram is without PFO/ASD Brain MRI negative for infarction PT/0T consulted for evaluation B12, folate, TSH all within normal limits Patient had worsening renal function which appears to be FLORI on CKD. And may be secondary to dehydration and/or Aleve use May be secondary to prednisone medication Resolved. Consider outpatient dementia workup. (2) Acute renal failure: Qualifiers: Acute renal failure type: unspecified Qualified Code(s): N17.9 - Acute kidney failure, unspecified Code(s): N17.9 - Acute kidney failure, unspecified Status: Acute Assessment and Plan: Patient stated that she has been taking a lot of NSAIDs. BUN 53, creatinine 1.9, GFR 25 Treated with gentle IV hydration Improved- BUN 41, creatinine 1.3, GFR 39 at discharge. (3) Chronic back pain: Qualifiers: Back pain location: low back pain Back pain laterality: midline Sciatica presence: without sciatica Qualified Code(s): M54.50 - Low back pain, unspecified; G89.29 - Other chronic pain Code(s): M54.9 - Dorsalgia, unspecified; G89.29 - Other chronic pain Status: Acute Assessment and Plan: Patient has been taking a lot of ibuprofen due to acute worsening of chronic back pain. Hold NSAIDs given FLORI on CKD P.r.n. acetaminophen or [place] 5/325 q.4 hours Lidoderm 5% patch daily continued oral prednisone with taper in the morning PT/OT evaluation- recommend home health (4) Essential (primary) hypertension: Code(s): I10 - Essential (primary) hypertension Status: Chronic Assessment and Plan: Chronic, stable. Patient reportedly had low blood pressure while taking lisinopril which was stopped Blood pressures reviewed and 128/61 to 122/70. HR 75. Resumed lisinopril at discharge. Repeat renal function profile in 1 week. DS: Summary Hospital Course Reason for hospitalization: Dizziness Hospital Course: Patient is a 86-year-old female who lives home alone.? She presented to the ED with family for evaluation of confusion. She reports having worsening back pain in the last few weeks and was started on oral prednisone.? The niece was concerned the patient was confused because she became lost driving in a familiar area.? Additionally, the patient's handwriting is changing and she is losing weight.? There is some fluctuations with high blood pressures for the last week prior to admission.? The patient had no fever, chills, nausea, vomiting or diarrhea.? The patient has been taking Advil for lower back pain.? In the ED, her sodium level was 136.? Creatinine 1.9. BUN is 53.? She reported not be eating and drinking as much as usual. She also complained of swelling to her lower extremities. The patient was admitted to the medical floor for further work up. Venous Dopplers were negative for deep vein thrombosis.? Carotid Doppler showed <50% stenosis in the right internal carotid artery and <50% stenosis in the left inte
[2022-12-02 08:00] VITALS: PULSE 64; RESP 16; O2SAT 100
[2022-12-02] MEDS: predniSONE 10 MG TABLET 30 MG PO (08:55)
[2022-12-02] MEDS: LIDOCAINE 5% PATCH 1 PATCH TRANSDERM (08:55)
[2022-12-02] MEDS: ACETAMINOPHEN 325 MG TABLET 650 MG PO (08:55)
== END 2022-12-02 11:20 | disposition home health service (06) | DRG 684 ==
LOC: ANHED 18:59 → ANH2MED 12-02 07:31
PROVIDERS: Nurse Practitioner; Admitting Provider Chiropractor; Emergency Provider Emergency Medicine; PCP Family Medicine Adolescent Medicine; Visit Provider Nurse Practitioner Family
DX: N17.9 Acute kidney failure, unspecified (principal); G89.29 Other chronic pain; M54.50 Low back pain, unspecified; Z87.891 Personal history of nicotine dependence; Z85.3 Personal history of malignant neoplasm of breast; N18.9 Chronic kidney disease, unspecified; I12.9 Hypertensive chronic kidney disease with stage 1 through stage 4 chronic kidney disease, or unspecified chronic kidney disease; R47.81 Slurred speech; H53.8 Other visual disturbances; R26.81 Unsteadiness on feet
CPT/HCPCS: 36415; 70450; 70553; 71046; 80048; 80053; 80069; 81003; 82607; 82728; 82746; 83540; 83550; 83735; 84443; 85025; 85027; 93005; 93880; 93970; 96360; 96375; 97110; 97116; 97161; 97165; 99285; A9270; A9577; C8929; J7030; J7512; Q9957

== ENCOUNTER 2023-02-05 15:00 | Outpatient (RCR) | payer MEDICARE, SELFPAY | END 2023-02-05 23:59 | disposition home or self-care (01) | LOC: ANHAUDIO 15:00 | PROVIDERS: PCP Family Medicine Adolescent Medicine; Visit Provider Family Medicine Adolescent Medicine | DX: Z46.1 Encounter for fitting and adjustment of hearing aid (principal) | CPT/HCPCS: 99199; V5261 ==

== ENCOUNTER 2023-12-13 14:18 | Emergency (ER) | payer MEDICARE, SELFPAY ==
[2023-12-13] VITALS (11 sets, daily range): BP systolic 131–166; BP diastolic 52–91; PULSE 78–88; RESP 16–20; TEMP 36.2; O2SAT 90–100
--- NOTE | 2023-12-13 14:31 | ED.GENADULT ---
HPI - General Adult General Chief complaint: Animal Bite Stated complaint: dog bite to nose Time Seen by Provider: 12/13/23 14:28 History of Present Illness HPI narrative: Patient is a 88-year-old female who presents ER after having a dog bite her nose. It occurred approximately 1 hour prior to arrival. It is unknown dog to her but she did not like finished significant hearing when she bent over to said hello and it nipped at her nose. It is removed the tip of her nose with a diameter the size of a quarter. There is expose nasal septum on left side. Tetanus shot last updated 6 years ago. Dog's vaccines are up-to-date. Related Data Home Medications Medication Instructions Recorded Confirmed famotidine 20 mg tablet 20 mg PO DAILY PRN Acid Reflux 11/30/22 05/27/23 simethicone 125 mg chewable tablet 125 mg PO DAILY PRN Gas 11/30/22 05/27/23 (Gas Relief (simethicone)) spironolactone 25 mg tablet 25 mg PO DAILY 12/17/22 05/27/23 metoprolol succinate 25 mg 25 mg PO DAILY 03/25/23 05/27/23 tablet,extended release 24 hr Allergies Allergy/AdvReac Type Severity Reaction Status Date / Time Influenza Virus Vaccines Allergy Unknown LYMPH NODE Verified 12/13/23 14:44 SWELLING indomethacin AdvReac Intermediate Abdominal Verified 12/13/23 14:44 Pain diclofenac AdvReac Mild Abdominal Verified 12/13/23 14:44 Pain Review of Systems Review of Systems: All systems reviewed & are unremarkable except as noted in HPI and below Constitutional: Constitutional: Reports no additional constitutional complaints ENT: Denies nasal congestion and Denies sore throat Comments: Nasal skin avulsion Cardiovascular: Cardiovascular: Reports no additional cardiovascular complaints Respiratory: Respiratory: Reports no additional respiratory complaints Gastrointestinal: Gastrointestinal: Reports no additional gastrointestinal complaints Musculoskeletal: Musculoskeletal: Reports no additional musculoskeletal complaints Neurologic: Reports system reviewed and no additional complaints, except as documented PMF Past Medical History Medical History Breast cancer Chronic back pain Hypertension Torn rotator cuff Surgical History Surgical History H/O bilateral mastectomy (2009) H/O cataract extraction H/O colonoscopy H/O mastectomy right side History of tonsillectomy Hx of bilateral hip replacements Left 2016 Right 2012 Hx of hysterectomy (2013) Family History Family History Sibling Asthma Diabetes mellitus Hypertension Grandparent Cerebrovascular accident Mother Colon cancer Congestive heart failure Hypertension Social History Social History (Updated 05/27/23 @ 11:57 by Sylwia Chávez APRN) Social History: she is single and lives alone. She is and has had no children. she has a masters of nursing [employer]. 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 She is a former smoker. Code status full code Smoking status: Former smoker Alcohol intake: current Drinks per week: 6 Substance use: never Lack of Transportation: No Lack of Food: Never True Current Housing: I Have Housing Concerned About Future Housing: No Difficulty Paying Gas/Electric Bills: No Difficulty Paying for Meds: No Currently Unemployed: No Education: Master's Degree or Higher Difficulty w/ Childcare or Family Care: No Gender identity (if verbalized by the patient): Female Spiritual care concerns: No Exam Narrative: GENERAL: Well-appearing, well-nourished, and in no acute distress. HEAD: Normocephalic, atraumatic. ENT: Mucous membranes moist. 2.5 cm diameter nasal avulsion with exposure of the left-sided nasal cartilage. No intra-naris injury NECK: Supple. EVA
[2023-12-13] MEDS: ceFAZolin 2 GM/D5W 50 ML 2 GM/50 ML BAG IVPB (15:50)
== END 2023-12-13 16:45 | disposition short-term general hospital (02) ==
PROVIDERS: Emergency Provider Emergency Medicine; PCP Family Medicine Adolescent Medicine
DX: S01.25XA Open bite of nose, initial encounter (principal); I10 Essential (primary) hypertension; Z96.643 Presence of artificial hip joint, bilateral; Z85.3 Personal history of malignant neoplasm of breast; Z87.891 Personal history of nicotine dependence; Z98.49 Cataract extraction status, unspecified eye; Z90.13 Acquired absence of bilateral breasts and nipples; Z90.710 Acquired absence of both cervix and uterus; W54.0XXA Bitten by dog, initial encounter
CPT/HCPCS: 96365; 99285; J0690

== ENCOUNTER 2024-09-04 13:00 | Outpatient (RCR) | payer SELFPAY | END 2024-09-04 23:59 | disposition home or self-care (01) | LOC: ANHAUDIO 13:00 | PROVIDERS: PCP Family Medicine Adolescent Medicine | DX: Z46.1 Encounter for fitting and adjustment of hearing aid (principal) | CPT/HCPCS: 99199; V5014 ==